=== PATIENT | male | born 1950 | race Caucasian/White ===

== ENCOUNTER 2021-02-12 12:50 | Emergency (ER) | payer MEDICARE, OTHER ==
[2021-02-12] MEDS ORDERED: Lidocaine 2% Jelly 10 ML Urojet MUCMEM ONE (13:06)
[2021-02-12] MEDS ORDERED: Lidocaine 2% Jelly 10 ML Urojet ONE (13:06)
[2021-02-12] MEDS ORDERED: Ondansetron 4 MG Tab.DIS PO ONE (13:18)
[2021-02-12] MEDS ORDERED: HYDROmorphone 0.5 MG/0.5 ML Syringe IVPUSH ONE ×2 (13:41→14:34)
[2021-02-12] MEDS ORDERED: Ondansetron 4 MG/2 ML SDV IVPUSH ONE (13:42)
--- NOTE | 2021-02-12 13:59 | EDM.PDOC ---
ED HPI GENERAL MEDICAL PROBLEM - General Chief Complaint: Genitourinary Problem Stated Complaint: [facility] Time Seen by Provider: 02/12/21 12:57 Source of Information: Reports: Patient, RN Notes Reviewed History Limitations: Reports: No Limitations - History of Present Illness INITIAL COMMENTS - FREE TEXT/NARRATIVE: Patient is a 70-year-old male presenting to the emergency department via [facility] with complaints of lower abdominal pain, urinary retention, nausea and vomiting. He reports that he has not voided since early yesterday. He has a history of prostate cancer and has required Oliva catheters in the past. He also has a history of urinary tract infections with his most recent being approximately 1 year ago. He developed nausea and vomiting about 45 minutes prior to coming to ER. Denies any fevers. 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 His urologist is Dr. Traylor at [facility]. Lower Abdomen Pain Score (Numeric/FACES): 6 - Related Data Allergies Allergy/AdvReac Type Severity Reaction Status Date / Time No Known Allergies Allergy Verified 02/12/21 13:01 Past Medical History Genitourinary History: Reports: UTI, Recurrent Oncologic (Cancer) History: Reports: Prostate - Past Surgical History Musculoskeletal Surgical History: Reports: Hip Replacement Social & Family History - Tobacco Use Tobacco Use Status *Q: Never Tobacco User Second Hand Smoke Exposure: No - Recreational Drug Use Recreational Drug Use: No ED ROS GENERAL - Review of Systems Review Of Systems: See Below Constitutional: Denies: Fever HEENT: Reports: No Symptoms Respiratory: Reports: No Symptoms Cardiovascular: Reports: No Symptoms Endocrine: Reports: No Symptoms GI/Abdominal: Reports: Abdominal Pain (lower), Nausea, Vomiting. Denies: Diandra rrhea : Reports: No Symptoms Musculoskeletal: Reports: No Symptoms Skin: Reports: No Symptoms Neurological: Reports: No Symptoms Psychiatric: Reports: No Symptoms Hematologic/Lymphatic: Reports: No Symptoms Immunologic: Reports: No Symptoms ED EXAM, RENAL/ - Physical Exam Exam: See Below Exam Limited By: No Limitations General Appearance: Alert, Mild Distress Respiratory/Chest: No Respiratory Distress, Lungs Clear, Normal Breath Sounds, No Accessory Muscle Use, Chest Non-Tender Cardiovascular: Normal Peripheral Pulses, Regular Rate, Rhythm, No Edema, No Gallop, No JVD, No Murmur, No Rub GI/Abdominal: Normal Bowel Sounds, Soft, No Organomegaly, No Distention, No Abnormal Bruit, No Mass, Tender (lower abdominal tenderness and fullness) Neurological: Alert, Oriented, CN II-XII Intact, Normal Cognition, Normal Gait, Normal Reflexes, No Motor/Sensory Deficits Psychiatric: Normal Affect, Normal Mood Skin Exam: Warm, Dry, Intact, Normal Color, No Rash Course - Vital Signs Last Recorded V/S: Last Vital Signs Temp 97 F 02/12/21 14:30 Pulse 73 02/12/21 14:30 Resp 16 02/12/21 14:30 BP 155/84 H 02/12/21 14:30 Pulse Ox 98 02/12/21 14:30 - Orders/Labs/Meds Labs: Laboratory Tests 02/12/21 02/12/21 02/12/21 Range/Units 13:40 13:40 13:48 WBC 8.93 (4.23-9.07) K/mm3 RBC 4.26 L (4.63-6.08) M/mm3 Hgb 13.9 (13.7-17.5) gm/dl Hct 41.9 (40.1-51.0) % MCV 98.4 H (79.0-92.2) fl MCH 32.6 H (25.7-32.2) pg MCHC 33.2 (32.2-35.5) g/dl RDW Std Deviation 49.0 H (35.1-43.9) fL Plt Count 356 H (163-337) K/mm3 MPV 10.2 (9.4-12.3) fl Neut % (Auto) 54.1 (34.0-67.9) % Lymph % (Auto) 29.9 (21.8-53.1) % [place] % (Auto) 13.7 H (5.3-12.2) % Eos % (Auto) 1.7 (0.8-7.0) Baso % (Auto) 0.4 (0.1-1.2) % Neut # (Auto) 4.83 (1.78-5.38) K/mm3 Lymph # (Auto) 2.67 (1.32-3.57) K/mm3 [place] # (Auto) 1.22 H (0.30-0.82) K/mm3 Eos # (Auto) 0.15 (0.04-0.54) K/mm3 Baso # (Auto) 0.04 (0.01-0.08) K/mm3 Sodium 145 (136-145) mEq/L Potassium 3.9 (3.5-5.1) mEq/L Chloride 107 (98-107) mEq/L Carbon Dioxide 23 (21-32) mEq/L Anion Gap 18.9 H (5-15) BUN 22 H (7-18) mg/dL Creatinine 1.5 H (0.7-1.3) mg/dL Est Cr Clr Drug Dosing 41.35 mL/min Estimated GFR (MDRD) 46 (>60) mL/min BUN/Creatinine Ratio 14.7 (14-18) Glucose 218 H (70-99) mg/dL Calcium 10.4 H (8.5-10.1) mg/dL Total Bilirubin 0.4 (0.2-1.0) mg/dL AST 27 (15-37) U/L ALT 39 (16-63) U/L Alkaline Phosphatase 105 (46-116) U/L Total Protein 7.5 (6.4-8.2) g/dl Albumin 3.6 (3.4-5.0) g/dl Globulin 3.9 gm/dL Albumin/Globulin Ratio 0.9 L (1-2) SARS-CoV-2 RNA (ANA) Negative (NEGATIVE) Meds: Medications Discontinued Medications Generic Name Dose Route Start Last Admin Trade Name Freq PRN Reason Stop Dose Admin Hydromorphone HCl 0.5 mg 02/12/21 13:41 02/12/21 13:46 Hydromorphone 0.5 Mg/0.5 Ml Syringe IVPUSH 02/12/21 13:42 0.5 mg ONETIME ONE Administration Hydromorphone HCl 0.5 mg 02/12/21 14:34 02/12/21 14:37 Hydromorphone 0.5 Mg/0.5 Ml Syringe IVPUSH 02/12/21 14:35 0.5 mg ONETIME ONE Administration Lidocaine HCl 10 ml 02/12/21 13:06 02/12/21 13:06 Lidocaine 2% Jelly 10 Ml Urojet MUCMEM 02/12/21 13:07 10 ml ONETIME ONE Administration Lidocaine HCl Confirm 02/12/21 13:06 02/12/21 13:17 Lidocaine 2% Jelly 10 Ml Urojet Administered 02/12/21 13:07 Not Given Dose 10 ml .ROUTE .STK-MED ONE Ondansetron HCl 4 mg 02/12/21 13:18 02/12/21 13:18 Ondansetron 4 Mg Tab.Dis PO 02/12/21 13:19 4 mg ONETIME ONE Administration Ondansetron HCl 4 mg 02/12/21 13:42 02/12/21 13:46 Ondansetron 4 Mg/2 Ml Sdv IVPUSH 02/12/21 13:43 4 mg ONETIME ONE Administration - Re-Assessments/Exams Free Text/Narrative Re-Assessment/Exam: Patient is a 70-year-old male presenting to the emergency department via [facility] with complaints of urinary retention, lower abdominal pain, nausea and vomiting. He has a history of urinary retention requiring Oliva catheter insertion as well as urinary tract infections and prostate cancer. Bladder scan in triage showed 570 mils of urine in the bladder. I have ordered blood work, urinalysis. We will attempt Oliva catheter insertion. 02/12/21 1350 Numerous attempts at Oliva catheter insertion were unsuccessful using a variety of sizes of coud-tip catheters by nursing, myself, and MD. Spoke with urologist, Dr. Mayo at [facility] in [place]. He recommended patient be transferred to their facility immediately. ER physician, Dr. Dangelo has accepted the patient for transfer. [facility] has been paged out for transfer, however they are on their way back from another transfer and will be approximately 45 minutes. I did order Dilaudid for pain and an additional dose of Zofran as patient is still having nausea and vomiting. Departure - Departure Time of Disposition: 13:50 Disposition: DC/Tfer to Acute Hospital 02 Condition: Good Clinical Impression: Retention of urine - Discharge Information Referrals: PCP,Not In Area [Primary Care Provider] - Forms: ED Department Discharge Sepsis Event Note (ED) - Evaluation Sepsis Screening Result: No Definite Risk
== END 2021-02-12 14:45 ==
LOC: JD.ED 12:52
DX: R33.9 Retention of urine, unspecified (principal); Z20.822 Contact with and (suspected) exposure to COVID-19
CPT/HCPCS: 36415; 80053; 85025; 96374; 96375; 96376; 99285; A9270; J1170; J2405; U0002; 99284